=== PATIENT | male | born 1980 | race African-American/Black ===

== ENCOUNTER 2018-05-24 12:12 | Emergency (ER) | payer OTHER ==
[~2018-05-24] VITALS: Ht 185.4 cm; Wt 111.1 kg
--- NOTE | ~2018-05-24 | EKG ---
[address] [place] [address] ELECTROCARDIOGRAM REPORT Name: RODYSELVIN Lakshmi Room #: [facility]rence[facility] [id number] Admission: 05/24/18 Attend Phys: Discharge: 05/24/18 Date of : 78 Report #: [id number] THIS REPORT FOR: //name// [facility] ED Test Date: 2018-05-24 Test Time: 12:25:23 Pat Name: SELVIN FINE Department: Room: Gender: Wealth Management Advisor: RUST : 1980 Requested By: Micheal Mccallum Order Number: [id number] MD: Hipolito Leo Measurements Intervals [place] Rate: 74 P: 28 NV: 162 QRS: 65 QRSD: 86 T: -18 QT: 341 QTc: 379 Interpretive Statements Sinus rhythm Nonspecific T abnormalities, inferior leads Poor R wave progression No previous ECG available for comparison Electronically Signed On 05-24-2018 17:22:46 FOOT DOCTOR by Hipolito Leo [email or web address] <ELECTRONICALLY SIGNED> By: Hipolito Leo MD, [facility] 05/24/18 1722 1225 1225 Hipolito Leo MD, FACC /EPI
[~2018-05-24 12:12] MED LIST: NAPROSYN500 MG PO; NOHOMEMEDICATIONS; NORCO 5-325 TA1 EACH PO; NORFLEX100 MG PO; PERCOCET 5-3251 EACH PO
[2018-05-24 12:49] LABS: ABSOLUTE NEUTROPHILS 3.5 thou/uL (1.4-8.2); BASOPHILS 0.4 % (0.0-2.0); EOSINOPHILS 0.4 % (0.0-3.0); HEMATOCRIT 41.9 % (42.0-52.0); HEMOGLOBIN 13.4 gm/dL (14.0-18.0); LYMPHOCYTES 26.3 % (24.0-44.0); MCH 23.6 pg (26.0-34.0); MCHC 32.1 g/dL (28.0-37.0); MCV 73.4 fL (80.0-100.0); MONOCYTES 10.7 % (1.0-8.0); PLATELET COUNT 213 thou/uL (150-400); POLYS 62.2 % (36.0-66.0); WBC 5.6 thou/uL (4.0-11.0)
[2018-05-24 12:57] LABS: ANION GAP 7 mmol/L (7-16); BUN 15 mg/dL (7-18); CALCIUM 9.2 mg/dL (8.5-10.1); CHLORIDE 104 mmol/L (98-107); CO2 30 mmol/L (21-32); CREATININE 1.2 mg/dL (0.7-1.3); GLUCOSE 85 mg/dL (74-106); POTASSIUM 4.8 mmol/L (3.5-5.1); SODIUM 141 mmol/L (136-145)
[2018-05-24 13:05] LABS: ALBUMIN 3.7 g/dL (3.4-5.0); MAGNESIUM 2.2 mg/dL (1.8-2.4); SGOT 20 U/L (15-37); SGPT 37 U/L (30-65); TOTAL BILIRUBIN 0.3 mg/dL (<0.1-1.0); TOTAL PROTEIN 7.7 g/dL (6.4-8.2); TROPONIN-I <0.06 ng/mL (<0.06)
[2018-05-24] MEDS ORDERED: VALIUM2 MG PO (14:01)
[2018-05-24] MEDS ORDERED: VENTOLIN HFA 1818 GM INH (14:01)
[2018-05-24 14:29] VITALS: BP 139/78
== END 2018-05-24 14:42 | disposition home or self-care (01) ==
LOC: ER 12:12
PROVIDERS: Emergency Medicine
DX: R42 Dizziness and giddiness (principal); R06.00 Dyspnea, unspecified; R06.02 Shortness of breath

== ENCOUNTER 2018-06-16 08:56 | Emergency (ER) | payer OTHER ==
[~2018-06-16] VITALS: Ht 182.9 cm; Wt 112.5 kg
[~2018-06-16 08:56] MED LIST changes: +VALIUM2 MG PO; +VENTOLIN HFA 1818 GM INH
[2018-06-16 09:46] LABS: ABSOLUTE NEUTROPHILS 2.9 thou/uL (1.4-8.2); BASOPHILS 0.3 % (0.0-2.0); EOSINOPHILS 1.3 % (0.0-3.0); HEMATOCRIT 40.1 % (42.0-52.0); HEMOGLOBIN 13.1 gm/dL (14.0-18.0); LYMPHOCYTES 28.3 % (24.0-44.0); MCH 24.4 pg (26.0-34.0); MCHC 32.8 g/dL (28.0-37.0); MCV 74.4 fL (80.0-100.0); PLATELET COUNT 185 thou/uL (150-400); POLYS 60.1 % (36.0-66.0); RBC 5.38 mil/uL (4.50-6.00); RDW 15.6 % (10.5-14.5); WBC 4.8 thou/uL (4.0-11.0)
[2018-06-16 09:52] LABS: ANION GAP 2 mmol/L (7-16); BUN 14 mg/dL (7-18); CALCIUM 8.9 mg/dL (8.5-10.1); CHLORIDE 107 mmol/L (98-107); CO2 30 mmol/L (21-32); GLUCOSE 89 mg/dL (74-106); POTASSIUM 4.5 mmol/L (3.5-5.1); SODIUM 139 mmol/L (136-145)
[2018-06-16 09:59] LABS: ALBUMIN 3.6 g/dL (3.4-5.0); LIPASE 153 U/L (73-393); SGOT 27 U/L (15-37); SGPT 36 U/L (30-65); TOTAL BILIRUBIN 0.4 mg/dL (<0.1-1.0); TOTAL PROTEIN 7.2 g/dL (6.4-8.2); TROPONIN-I <0.06 ng/mL (<0.06)
[2018-06-16 10:08] LABS: URINE CLARITY CLEAR; URINE COLOR YELLOW; URINE SPECIFIC GRAVITY 1.025 (1.005-1.035); URINE UROBILINOGEN 0.2 E.U./dl (0.2-1.0)
[2018-06-16 10:09] LABS: URINE BILIRUBIN NEGATIVE (Negative); URINE BLOOD NEGATIVE (Negative); URINE GLUCOSE-RANDOM* NEGATIVE (Negative); URINE KETONES NEGATIVE (Negative); URINE LEUKOCYTES-REFLEX NEGATIVE (Negative); URINE NITRITE-REFLEX NEGATIVE (Negative); URINE PROTEIN (DIPSTICK) NEGATIVE (Negative)
[2018-06-16] MEDS ORDERED: TRAMADOL 50 MG50 MG PO (10:36)
[2018-06-16] MEDS ORDERED: NAPROSYN500 MG PO (10:36)
[2018-06-16 11:47] VITALS: BP 123/79
--- NOTE | 2018-06-16 23:29 | EKG ---
[address] [address] [facility] [place] [address] ELECTROCARDIOGRAM REPORT Name: SELVIN FINE Room #: [facility]P [facility] [id number] Admission: 06/16/18 Attend Phys: Discharge: 06/16/18 Date of : [birth year] Report #: [id number] THIS REPORT FOR: //name// [facility] ED Test Date: 2018-06-16 Test Time: 09:47:10 Pat Name: SELVIN FINE Department: Room: Gender: M Circulation Man: as : 1980 Requested By: Micheal Mccallum Order Number: [id number] MD: Ozzie August Measurements Intervals [place] Rate: 68 P: 26 VA: 159 QRS: 59 QRSD: 87 T: -12 QT: 372 QTc: 396 Interpretive Statements Sinus rhythm Probable left atrial enlargement Borderline T abnormalities, inferior leads Compared to ECG 05/24/2018 12:25:23 Poor R-wave progression no longer present T-wave abnormality still present Electronically Signed On 06-16-2018 23:29:09 LETTER STAMPING MACHINE OPERATOR by Ozzie August [email or web address] <ELECTRONICALLY SIGNED> By: Ozzie August MD 06/16/18 2329 6 Ozzie August MD /LASHONDA
== END 2018-06-16 11:48 | disposition home or self-care (01) ==
LOC: ER 08:56
PROVIDERS: Emergency Medicine
DX: K43.9 Ventral hernia without obstruction or gangrene (principal); D50.9 Iron deficiency anemia, unspecified